=== PATIENT | male | born 1960 | race American Indian/Alaskan Native ===

== ENCOUNTER 2019-07-16 09:17 | Day surgery (SDC) | payer OTHER ==
[~2019-07-16 09:17] MED LIST: NACL 0.9% 1000 ML 1,000 ML IV SCH
--- NOTE | 2019-07-16 10:28 | Anesthesia Consultation ---
Anesthesia Consult and Med Hx Date of service: 07/16/19 - Airway Anesthetic Teeth Evaluation: Good ROM Head & Neck: Adequate Mental/Hyoid Distance: Adequate Mallampati Class: Class II Intubation Access Assessment: Good - Pulmonary Exam CTA: Yes - Cardiac Exam Cardiac Exam: RRR - Pre-Operative Health Status ASA Pre-Surgery Classification: ASA2 Proposed Anesthetic Plan: MAC - Cardiovascular System Hx Hypertension: Yes Hx Coronary Artery Disease: Yes
--- NOTE | 2019-07-16 10:28 | Anesthesia Day of Surgery ---
Anesthesia Day of Surgery - Day of Surgery Patient Examined: Yes Patient H&P Reviewed: Yes Patient is NPO: Yes
[2019-07-16] MEDS ORDERED: XYLOCAINE MPF 2% ONE (11:00)
[2019-07-16] MEDS ORDERED: WATER FOR IRRIG STERILE IR ONE (11:02)
[2019-07-16] MEDS ORDERED: DIPRIVAN 10 MG/ML IV ONE ×2 (11:09)
--- NOTE | 2019-07-16 11:35 | Procedure Note ---
Date of procedure: 07/16/19 Pre-op diagnosis: Colon Polyp Screening Post-op diagnosis: other (No Colon Polyps noted/Moderate,Left Colon diverticular Disease/Mild to Moderate Internal Hemorrhoid) Procedure: Colonoscopy Anesthesia: MAC Surgeon: OLI MAHER Estimated blood loss: none Pathology: none Condition: stable Disposition: same day (Encourage fiber intake; resume home medication. Follow up in 1 to 2 weeks ([phone]).)
--- NOTE | 2019-07-16 12:12 | Operative Report ---
PROCEDURE: Colonoscopy. INDICATIONS: This is a 58-year-old -[place] gentleman with an underlying history of hypertension and arthritis. He had a colonoscopy done as part of colon polyp screening. DESCRIPTION OF PROCEDURE: Procedure was done after getting informed consent with MAC anesthesia. Initial rectal exam was unremarkable. Instrument was passed through the rectum onto the cecum, which was identified with ileocecal valve and the appendiceal orifice. Visualization was fair. Mucosa was washed with copious amounts of water. The cecum was looked on a retroflexed view and also the scope was withdrawn in the straight viewed up to the hepatic flexure and reintroduced to the cecum. No additional pathology was noted. The cecum, ascending colon, transverse colon showed normal mucosa. Moderate diverticular disease was noted in the left colon and the rectum showed mild to moderate internal hemorrhoid on the retroverted view. There was no colon polyps noted, no biopsies done. No bleeding associated with the procedure. No complications associated with the procedure. ASSESSMENT: Colon polyp screening, no colon polyps noted. Moderate left colon diverticular disease, mild to moderate internal hemorrhoid. The patient will be encouraged to take fiber supplements, resume home medications and follow up in the office in 1-2 weeks' time. Procedure was done in the GI lab with assistance of the GI lab team, which included Vani CHINCHILLA including Lázaro diez and a tech from the OR that was shadowing, Lázaro diez as well as with the assistance of anesthesia. JOB# [id number] ZOFIA/OWEN
[2019-07-16 12:16] VITALS: BP 132/74
== END 2019-07-16 09:18 | disposition home or self-care (01) ==
LOC: GIO 09:17
DX: Z12.11 Encounter for screening for malignant neoplasm of colon (principal); K64.8 Other hemorrhoids; K57.30 Diverticulosis of large intestine without perforation or abscess without bleeding; I10 Essential (primary) hypertension; M19.90 Unspecified osteoarthritis, unspecified site; I25.10 Atherosclerotic heart disease of native coronary artery without angina pectoris; Z88.6 Allergy status to analgesic agent; Z79.899 Other long term (current) drug therapy
CPT/HCPCS: 45378; 82962; J2704; J7030